=== PATIENT | female | born 1970 | race Caucasian/White ===

== ENCOUNTER → 2017-12-27 07:34 | Outpatient (CLI) | payer OTHER, SELFPAY ==
[2017-12-27 11:50] LABS: ALB/GLOB Ratio 1.2 RATIO (0.9-2.4); AST(SGOT) 27 U/L (15-37); Alanine Aminotransfer ALT/SGPT 31 U/L (13-56); Alkaline Phosphatase 88 U/L (45-117); Anion Gap 9 (5-15); BUN 15 mg/dL (7-18); BUN/Creat Ratio 21.9 RATIO (10-20); Calcium,Total 9.2 mg/dL (8.5-10.1); Chloride 109 mmol/L (98-107); Cholesterol 154 mg/dL (200); Creatinine, Serum 0.68 mg/dL (0.55-1.02); EST Glomerular Filtration Rate 97 mL/min (>60); Est Glom Filt Rate - Afr Amer 117 mL/min (>60); Globulin 3.4 g/dL (2.2-4.2); Glucose 82 mg/dL (74-106); High Density Lipoprotein 43 mg/dL; Potassium 3.9 mmol/L (3.5-5.1); Protein, Total 7.4 g/dL (6.4-8.2); Sodium Level 144 mmol/L (136-145); Triglycerides 81 mg/dL; Very Low Density Lipoprotein 16 mg/dL (5-40)
== END ==
PROVIDERS: Family Provider Family Medicine; PCP Family Medicine; Visit Provider Family Medicine
DX: E78.00 Pure hypercholesterolemia, unspecified (principal)
CPT/HCPCS: 36415; 80053; 80061

== ENCOUNTER → 2020-05-20 07:36 | Outpatient (CLI) | payer OTHER, SELFPAY ==
[2020-05-20 10:07] LABS: Absolute Lymphocyte Count 2.22 X10^3/uL (0.83-4.51); Absolute Neutrophil Count 2.9 X10^3/uL (2.0-7.7); Basophil# 0.05 X10^3/uL; Basophil% 0.8 % (0-1); Eosinophil# 0.99 X10^3/uL; Eosinophils% 15.2 % (0-5); Hematocrit 44.9 % (37-47); Hemoglobin 14.4 g/dL (12.0-15.0); Lymphocyte # 2.22 X10^3/ul (4.0); Lymphocyte % 34.2 % (19-41); Mean Corp Hgb Conc 32.1 g/dL (32-36); Mean Corpuscular Volume 90.3 fL (81-99); Mean Platelet Vol. 9.6 fl (6.2-12.0); Monocyte# 0.36 X10^3/uL; Monocyte% 5.5 % (0-10); NRBC Flagged by Analyzer 0 % (0-5); Neutrophil # 2.86 X10^3/uL (2.7-7.7); Platelet Count 320 K/mm3 (150-450); RBC Distribution Width CV 13.8 % (11.6-14.6); RBC Distribution Width SD 45.8 fl (35.1-43.9); Red Blood Count 4.97 M/mm3 (4.2-5.4); White Blood Count 6.5 K/mm3 (4.4-11.0)
[2020-05-20 11:00] LABS: ALB/GLOB Ratio 1.1 RATIO (0.9-2.4); AST(SGOT) 20 U/L (15-37); Alanine Aminotransfer ALT/SGPT 30 U/L (13-56); Alkaline Phosphatase 96 U/L (45-117); Anion Gap 7 (5-15); BUN 12 mg/dL (7-18); BUN/Creat Ratio 15.5 RATIO (10-20); Calcium,Total 8.8 mg/dL (8.5-10.1); Chloride 109 mmol/L (98-107); Cholesterol 270 mg/dL (200); Creatinine, Serum 0.77 mg/dL (0.55-1.02); EST Glomerular Filtration Rate 84 mL/min (>60); Est Glom Filt Rate - Afr Amer 101 mL/min (>60); Globulin 3.5 g/dL (2.2-4.2); Glucose 84 mg/dL (74-106); High Density Lipoprotein 46 mg/dL; Potassium 3.8 mmol/L (3.5-5.1); Protein, Total 7.5 g/dL (6.4-8.2); Sodium Level 141 mmol/L (136-145); Triglycerides 180 mg/dL; Very Low Density Lipoprotein 36 mg/dL (5-40)
== END ==
PROVIDERS: PCP Family Medicine; Referring Provider Family Medicine; Visit Provider Family Medicine
DX: Z00.00 Encounter for general adult medical examination without abnormal findings (principal); F32.9 Major depressive disorder, single episode, unspecified
CPT/HCPCS: 36415; 80053; 80061; 84443; 85025

== ENCOUNTER → 2020-06-07 | Outpatient (CLI) | payer OTHER, SELFPAY | END | disposition home or self-care (01) | LOC: LABSPEC 09:18 | PROVIDERS: PCP Family Medicine; Visit Provider Family Medicine | DX: Z20.828 Contact with and (suspected) exposure to other viral communicable diseases (principal) | CPT/HCPCS: 87426; 87635; U0005; U0003 ==

== ENCOUNTER → 2020-08-04 | Outpatient (CLI) | payer OTHER, SELFPAY ==
[2020-08-04 14:33] VITALS: BMI 30.4
[2020-08-15 13:03] LABS: HPV APTIMA, High Risk Negative (Negative)
== END | disposition home or self-care (01) ==
LOC: LABSPEC 16:34
PROVIDERS: PCP Family Medicine; Referring Provider Nurse Practitioner Women's Health; Visit Provider Nurse Practitioner Women's Health
DX: Z12.4 Encounter for screening for malignant neoplasm of cervix (principal)
CPT/HCPCS: 87624; 88175; G0145

== ENCOUNTER → 2020-08-22 11:53 | Outpatient (CLI) | payer OTHER, SELFPAY ==
[2020-08-04 14:33] VITALS: BMI 30.4
[2020-08-22 15:42] LABS: Free T3 2.2 pg/mL (2.18-3.98); T4 Free Direct 0.93 ng/dL (0.76-1.46); Thyroid Stim Hormone (TSH) 3.88 uIU/mL (0.358-3.74)
== END ==
PROVIDERS: PCP Family Medicine; Referring Provider Family Medicine; Visit Provider Family Medicine
DX: E03.9 Hypothyroidism, unspecified (principal)
CPT/HCPCS: 36415; 84439; 84443; 84481

== ENCOUNTER → 2021-03-30 15:59 | Outpatient (CLI) | payer OTHER, SELFPAY ==
--- NOTE | 2021-03-30 16:02 | BI_ITS ---
MAMMOGRAPHY - BILATERAL SCREENING REASON FOR EXAM: Female, 50 years old. Routine annual screening examination. PERTINENT HISTORY: Non-contributory. Remote right stereotactic breast biopsy. TECHNIQUE: Digital bilateral breast migue (3D mammographic acquisition) in the CC and MLO projections. 2-D mediolateral oblique (MLO) and craniocaudad (CC) views of both breasts were obtained. CAD: Full Field Digital Mammography with Computer Added Detection was performed. COMPARISON: Comparison is made with prior abdomen examination dated 10/18/2014. FINDINGS: Breast Composition: The breasts are heterogeneously dense, which may obscure small masses. There are no dominant masses or suspicious calcifications. A tissue clip marker is seen in the deep inferior central portion of the right breast. No other significant abnormalities are identified. There has been no significant change since the prior study. BI/SCRN MAMM (CAD)W/MIGUE BILAT IMPRESSION: Stable bilateral screening mammogram. Yearly follow-up mammogram recommended. (A) ASSESSMENT CATEGORY: BIRADS Category 2: Benign. A letter regarding these results will be sent to the patient by the facility within 30 days. Approximately 10% of breast cancers are not detected by mammography. A normal mammogram should not delay biopsy of a clinically suspicious abnormality. [id number] Electronically Signed: Jovany Guthrie MD at 9:38 EDT , Service support ,
== END ==
PROVIDERS: PCP Family Medicine; Referring Provider Nurse Practitioner Women's Health; Visit Provider Nurse Practitioner Women's Health
DX: Z12.31 Encounter for screening mammogram for malignant neoplasm of breast (principal)
CPT/HCPCS: 77063; 77067

== ENCOUNTER → 2022-06-25 | Outpatient (CLI) | payer OTHER, SELFPAY ==
[2022-06-25 09:50] LABS: Absolute Lymphocyte Count 2.28 X10^3/uL (0.83-4.51); Absolute Neutrophil Count 3.1 X10^3/uL (2.0-7.7); Basophil# 0.05 X10^3/uL; Basophil% 0.8 % (0-1); Eosinophil# 0.23 X10^3/uL; Eosinophils% 3.8 % (0-5); Hemoglobin 14.6 g/dL (12.0-15.0); Lymphocyte # 2.28 X10^3/ul (0.83-4.51); Lymphocyte % 37.6 % (19-41); Mean Corp Hgb Conc 32.4 g/dL (32-36); Mean Corpuscular Hgb 29.3 pg (27.0-32.0); Mean Corpuscular Volume 90.4 fL (81-99); Mean Platelet Vol. 9.3 fl (6.2-12.0); Monocyte% 6.6 % (0-10); NRBC Flagged by Analyzer 0 % (0-5); Platelet Count 293 K/mm3 (150-450); RBC Distribution Width CV 13.9 % (11.6-14.6); RBC Distribution Width SD 46.6 fl (35.1-43.9); Red Blood Count 4.98 M/mm3 (4.2-5.4); White Blood Count 6.1 K/mm3 (4.4-11.0)
[2022-06-25 10:19] LABS: AST(SGOT) 21 U/L (15-37); Alanine Aminotransfer ALT/SGPT 30 U/L (13-56); Albumin, Serum 3.8 g/dL (3.2-5.0); Alkaline Phosphatase 82 U/L (45-117); Anion Gap 8 (5-15); BUN 14 mg/dL (7-18); BUN/Creat Ratio 17.6 RATIO (10-20); Calcium,Total 9.1 mg/dL (8.5-10.1); Chloride 107 mmol/L (98-107); Cholesterol 272 mg/dL (200); EST Glomerular Filtration Rate 80 mL/min (>60); Est Glom Filt Rate - Afr Amer 97 mL/min (>60); Globulin 3.7 g/dL (2.2-4.2); Glucose 98 mg/dL (74-106); High Density Lipoprotein 51 mg/dL; Potassium 3.9 mmol/L (3.5-5.1); Protein, Total 7.5 g/dL (6.4-8.2); Sodium Level 141 mmol/L (136-145); Triglycerides 151 mg/dL; Very Low Density Lipoprotein 30 mg/dL (5-40)
== END | disposition home or self-care (01) ==
LOC: MTLAB 07:30
PROVIDERS: PCP Family Medicine; Referring Provider Family Medicine; Visit Provider Family Medicine
DX: E03.9 Hypothyroidism, unspecified (principal); E78.00 Pure hypercholesterolemia, unspecified
CPT/HCPCS: 36415; 80053; 80061; 84443; 85025

== ENCOUNTER → 2022-07-12 | Outpatient (CLI) | payer OTHER, SELFPAY ==
--- NOTE | 2022-07-12 10:11 | BI_ITS ---
MAMMOGRAPHY - BILATERAL SCREENING REASON FOR EXAM: Female, 51 years old. Routine annual screening examination. PERTINENT HISTORY: Non-contributory. Remote right stereotactic breast biopsy. TECHNIQUE: Digital bilateral breast migue (3D mammographic acquisition) in the CC and MLO projections. 2-D mediolateral oblique (MLO) and craniocaudad (CC) views of both breasts were obtained. CAD: Full Field Digital Mammography with Computer Added Detection was performed. COMPARISON: Comparison is made with prior study dated 03/22/2021. FINDINGS: Breast Composition: The breasts are heterogeneously dense, which may obscure small masses. There are no dominant masses or suspicious calcifications. A tissue clip marker is once again seen in deep inferior central portion of the right breast No other significant abnormalities are identified. There has been no significant change since the prior study. BI/SCRN MAMM (CAD)W/MIGUE BILAT IMPRESSION: Stable bilateral screening mammogram. Yearly follow-up mammogram recommended. (A) ASSESSMENT CATEGORY: BIRADS Category 2: Benign. A letter regarding these results will be sent to the patient by the facility within 30 days. Approximately 10% of breast cancers are not detected by mammography. A normal mammogram should not delay biopsy of a clinically suspicious abnormality. [id number] Electronically Signed: Jovany Guthrie MD at 11:13 EST ,
== END | disposition home or self-care (01) ==
LOC: OPBI 10:10
PROVIDERS: PCP Family Medicine; Visit Provider Family Medicine
DX: Z12.31 Encounter for screening mammogram for malignant neoplasm of breast (principal)
CPT/HCPCS: 77063; 77067

== ENCOUNTER 2022-07-26 08:18 | Day surgery (SDC) | payer OTHER, SELFPAY ==
[2022-07-26 08:43] VITALS: BP 94/55; PULSE 84; RESP 16; TEMP 36.7; O2SAT 99; BMI 28.9
[2022-07-26] MEDS: Lactated Ringers 1,000 ML 15 ML IV (09:01)
--- NOTE | 2022-07-26 09:30 | COLBX_PTH ---
PATIENT: SUDHEER KELLEY LOC: EN U#:[id number] AGE/SX: 51/F ROOM: RE07/26/[address]: Dr. Jose Zendejas MD : 1970 BED: DIS: 07/26/2022 SPEC #: [id number] RECD: 07/26/22 12:17 STATUS: MONIKA CATHERINE #: [id number] CESAR: 07/26/22 09:[address]: Jose Zendejas DEPT: SURGICAL PATHOLOGY RECD BY: Franchesca Isaac ENTERED: 07/26/22 12:39 SP TYPE: COLON BX OTHR DR: Dr. Fatoumata Franks MD Tissues: A - Sigmoid colon biopsy B - Sigmoid colon biopsy Procedures: Surgery Specimen Level IV HEADER OPERATION: Colonoscopy ? open access (MAC), polypectomy PRE-OP DIAGNOSIS: Screening TISSUE SUBMITTED: A ? Sigmoid colon polyp, B ? Distal sigmoid polyp MICROSCOPIC DIAGNOSIS A. Sigmoid colon polyp, polypectomy: Fragments of tubular adenoma. B. Distal sigmoid polyp, polypectomy: A cauterized fragment of colonic mucosa with changes suggestive of hyperplastic polyp. AUDIE:angela 07/27/2022 MICROSCOPIC DESCRIPTION Slides are reviewed. GROSS DESCRIPTION A - Received in fixative is one container labeled with the patient's name and designated sigmoid polyp. The specimen consists of multiple irregular fragments of light avina soft tissue that in aggregate measure 0.6 x 0.3 x 0.1 cm. The specimen is totally submitted in one cassette. B - Received in fixative is one container labeled with the patient's name and designated distal sigmoid polyp. The specimen consists of one irregular fragment of light avina soft tissue that measures 0.2 x 0.1 x 0.1 cm. The specimen is totally submitted in one cassette. / AUDIE:angela 07/26/2022 TC:1 CPT: 87546 x2
--- NOTE | 2022-07-26 09:47 | HP.PCM_ITS ---
[facility] - General General Date of Service: 07/26/22 Chief Complaint: Screening colonoscopy HPI Narrative SUDHEER KELLEY, is a 51 F who presents for screening colonoscopy. She confirms her preappointment questionnaire that she has not experienced any change in her bowel habits-and particularly denies any notice of blood. She also denies any family history of GI illness to include diverticulitis, inflammatory bowel disease, or colon cancer. Lastly she confirms that her prep was completed successfully and that her output is now clear. [facility] Medical History (Updated 07/23/22 @ 08:29 by Deyanira Mckee) Alcohol use Allergies Asthma COVID-19 Depression Depression Fibrocystic breast History of steroid therapy Hypercholesteremia Hypothyroid Non-smoker Post-menopausal Thyroid disease Wears glasses Home Medications fluticasone 100 mcg-salmeterol 50 mcg/dose blistr powdr for inhalation (Advair Diskus) 1 inh inhalation BID 08/04/20 [History Last Taken Unknown] fluticasone propionate 50 mcg/actuation nasal spray,suspension (Flonase Allergy Relief) 1 spray intranasal DAILY 08/04/20 [History Last Taken Unknown] levothyroxine 50 mcg capsule 88 mcg PO DAILY 08/04/20 [History Last Taken Unknown] loratadine 10 mg capsule 10 mg PO DAILY 08/04/20 [History Last Taken Unknown] montelukast 10 mg tablet 10 mg PO DAILY 08/04/20 [History Last Taken Unknown] sertraline 100 mg tablet 100 mg PO DAILY 08/04/20 [History Last Taken Unknown] albuterol 90 mcg/actuation aerosol inhaler mcg inhalation 07/26/22 [History Last Taken Unknown] Allergy/AdvReac Type Severity Reaction Status Date / Time aspirin Allergy Intermediate ASTHMA Verified 07/23/22 08:20 NSAIDS (Non-Steroidal Allergy Intermediate ASTHMA Verified 07/23/22 08:20 Anti-Inflamma Family History Father Heart disease Grandmother Breast cancer Mother kidney cancer Alcoholism Nicole Gehrigs disease Surgical History (Updated 07/23/22 @ 08:29 by Deyanira Mckee) History of breast biopsy History of carpal tunnel release History of eyelid surgery History of tonsillectomy Hx of nasal polypectomy Hx of wisdom tooth extraction Social History household members: spouse, children and other number of children: 2 current occupational status: employed current occupation: [employer] history of recent travel: No Smoking Status: Never smoker alcohol intake: current alcohol intake frequency: a few times a month substance use type: does not use what type of physical activity do you participate in: walking seatbelt use: always do you feel safe at home: Yes additional social history: - William Past Medical/Surgical History Planned Operation Planned Operative Procedure/s: CSCOPE OA Previous Hospitalizations/Surgeries HX Hospitalizations: No Any Problems With Anesthesia: No You/Your Family Experience Fever (Hyperthermia) With Anes: No Cholinesterase deficiency: No Cardiovascular Hx Hypertension: No Respiratory Hx Sleep Apnea: No Hx Respiratory Tract Infection/Cold (presently): No Do You Snore Loudly (louder than talking or can be heard): Yes Do You Often Feel Tired/ Fatigued/ Sleepy Dring Daytime?: No Has Anyone Observed You Stop Breathing During Sleep?: No Result (for STOP score): Negative Smoking Status: Never smoker Neurological Does patient have nerve stimulator: No Reproduction : No Miscellaneous Recent Exposure to Contagious Disease: No Allergies aspirin Allergy (Intermediate, Verified 07/23/22 08:20) ASTHMA NSAIDS (Non-Steroidal Anti-Inflamma Allergy (Intermediate, Verified 07/23/22 08:20) ASTHMA Discharge Is Pt Admitted From a Penitentiary, or a Senior Living: No After D/C, Where Do you Plan to Go: Return Home Vital Signs Vital Signs Vital Signs: 07/26/22 08:43 07/26/22 08:43 Temperature 98.1 F Temperature Source Temporal Pulse Rate 84 Respiratory Rate 16 Respiratory Pattern Normal Blood Pressure 94/55 L Blood Pressure Mean 68 Blood Pressure Source Monitor Blood Pressure Position Sitting Blood Pressure Location Right Arm Pulse Ox 99 Oxygen Delivery Method Room Air Weight Weight: 163 lb 2.273 oz Body Mass Index (BMI) 28.9 Physical Exam Const alert, oriented x3 and no apparent distress Resp normal respiratory effort GI GI Narrative: Soft, nontender nondistended Assessment & Plan Assessment/Plan (1) Encounter for screening for malignant neoplasm of colon: PLAN: Is a 51-year-old female who presents for open access program screening colonoscopy under MAC sedation. She confirms the content of her preprocedure questionnaire and appears to be at average risk for colon cancer. Further, she confirms that she has completed a prep and denies any further questions regarding today's procedure. Therefore we will proceed to the endoscopy suite for screening colonoscopy as previously arranged. Surgery Risks - Colonoscopy Risks Include but are not Limited To: Risks include but are not limited to: Bleeding, perforation requiring further surgery, inability to complete colonoscopy requiring barium enema.
[2022-07-26 10:38] VITALS: BP 118/27; BP 94/55; PULSE 66; RESP 16; TEMP 37.1; O2SAT 97
[2022-07-26 10:40] VITALS: BP 94/55; BP 98/58; PULSE 73; RESP 16; O2SAT 96
--- NOTE | 2022-07-26 10:40 | OP.COLON_ITS ---
Patient Name: Kimberly Mena Procedure Date: 07/26/2022 9:51 AM Date of : 1970 Age: 51 Procedure: Colonoscopy Indications: Screening for colorectal malignant neoplasm Providers: Jose Zendejas MD Referring MD: Jose Zendejas MD Medicines: See the Anesthesia note for documentation of the administered medications Patient Profile: Last Colonoscopy: none. The patient's first colonoscopy is today. Complications: No immediate complications. Estimated blood loss: None. Procedure: Pre-Anesthesia Assessment: - The heart rate, respiratory rate, oxygen saturations, blood pressure, adequacy of pulmonary ventilation, and response to care were monitored throughout the procedure. After I obtained informed consent, the scope was passed under direct vision. Throughout the procedure, the patient's blood pressure, pulse, and oxygen saturations were monitored continuously. The Colonoscope was introduced through the anus and advanced to the cecum, identified by the appendiceal orifice, ileocecal valve and palpation. The colonoscopy was somewhat difficult due to difficulty distending colon with CO2 {skip}. Air insufflation. The quality of the bowel preparation was adequate to identify polyps 6 mm and larger in size. Scope In: 9:56:27 AM Scope Withdrawal Time 0 hours 24 minutes 13 seconds Scope Out: 10:32:55 AM Total Procedure Duration Time 0 hours 36 minutes 28 seconds Findings: Skin tags were found on perianal exam. Two semi-pedunculated polyps were found in the sigmoid colon, proximal sigmoid colon and distal sigmoid colon. The polyps were 5 mm in size. These polyps were removed with a hot snare. Resection and retrieval were complete. Estimated blood loss: none. A few small-mouthed diverticula were found in the sigmoid colon. No biopsies or other specimens were collected for this exam. The exam was otherwise without abnormality on direct and retroflexion views. Impression: - Perianal skin tags found on perianal exam. - Two 5 mm polyps in the sigmoid colon, in the proximal sigmoid colon and in the distal sigmoid colon, removed with a hot snare. Resected and retrieved. - Diverticulosis in the sigmoid colon. No specimens collected. - The examination was otherwise normal on direct and retroflexion views. Recommendation: - Discharge patient to home (via wheelchair). - High fiber diet today. - Continue present medications. - Await pathology results. - Repeat colonoscopy date to be determined after pending pathology results are reviewed for surveillance based on pathology results. - Telephone my office for pathology results in 1 week. Procedure Code(s): --- Professional --- 48955, Colonoscopy, flexible; with removal of tumor(s), polyp(s), or other lesion(s) by snare technique Diagnosis Code(s): --- Professional --- Z12.11, Encounter for screening for malignant neoplasm of colon D12.5, Benign neoplasm of sigmoid colon K64.4, Residual hemorrhoidal skin tags K57.30, Diverticulosis of large intestine without perforation or abscess without bleeding CPT copyright 2017 [employer]. All rights reserved. The codes documented in this report are preliminary and upon computer programmer chief review may be revised to meet current compliance requirements. Jose Zendejas MD 07/26/2022 10:40:47 AM This report has been signed electronically. Number of Addenda: 0 Note Initiated On: 07/26/2022 9:51 AM
--- NOTE | 2022-07-26 10:41 | OP.CCLET_ITS ---
07/26/2022 Fatoumata Franks [place] [id number] [address] Re : Colonoscopy procedure for Kimberly Mena Dear Dr. Franks This procedure was performed on July. My impressions and recommendations are as follows: Impressions : - Perianal skin tags found on perianal exam. - Two 5 mm polyps in the sigmoid colon, in the proximal sigmoid colon and in the distal sigmoid colon, removed with a hot snare. Resected and retrieved. - Diverticulosis in the sigmoid colon. No specimens collected. - The examination was otherwise normal on direct and retroflexion views. Recommendations : - Discharge patient to home (via wheelchair). - High fiber diet today. - Continue present medications. - Await pathology results. - Repeat colonoscopy date to be determined after pending pathology results are reviewed for surveillance based on pathology results. - Telephone my office for pathology results in 1 week. My findings are described in the full procedure note, which is enclosed. If I can be of further assistance, please feel free to contact me at Doctor phone number(s): , Work: . Sincerely, Jose Zendejas MD 07/26/2022 10:40:47 AM This report has been signed electronically.
[2022-07-26 10:45] VITALS: BP 94/55; BP 99/60; PULSE 67; RESP 16; O2SAT 97
[2022-07-26 10:50] VITALS: BP 102/68; BP 94/55; PULSE 62; RESP 16; O2SAT 98
[2022-07-26 10:54] VITALS: BP 103/65; BP 94/55; PULSE 63; RESP 16; TEMP 35.9; O2SAT 95
== END 2022-07-26 11:30 | disposition home or self-care (01) ==
LOC: EN 08:21 → AC 08:22
PROVIDERS: PCP Family Medicine; Referring Provider Family Medicine; Visit Provider Surgery
PROC: 0DJD8ZZ Inspection of Lower Intestinal Tract, Via Natural or Artificial Opening Endoscopic (ICD-10-PCS; CPT 45378; principal; 2022-07-26 09:25)
DX: Z12.11 Encounter for screening for malignant neoplasm of colon (principal); K57.30 Diverticulosis of large intestine without perforation or abscess without bleeding; D12.5 Benign neoplasm of sigmoid colon; K64.4 Residual hemorrhoidal skin tags; F32.A Depression, unspecified; E03.9 Hypothyroidism, unspecified; Z79.899 Other long term (current) drug therapy; Z79.890 Hormone replacement therapy; Z86.16 Personal history of COVID-19; J45.909 Unspecified asthma, uncomplicated; E78.00 Pure hypercholesterolemia, unspecified
CPT/HCPCS: 45385; 88305; J7120; J2405

== ENCOUNTER → 2022-08-23 | Outpatient (CLI) | payer OTHER, SELFPAY | END | disposition home or self-care (01) | LOC: LAB.FUTURE 08:12 → BFHLAB 08:12 | PROVIDERS: PCP Family Medicine; Referring Provider Family Medicine; Visit Provider Family Medicine | DX: E03.9 Hypothyroidism, unspecified (principal) | CPT/HCPCS: 36415; 84443 ==

== ENCOUNTER → 2022-08-23 | Outpatient (CLI) | payer OTHER, SELFPAY ==
--- NOTE | 2022-08-23 07:03 | CT_ITS ---
STUDY: CT MAXILLOFACIAL SINUSES REASON FOR EXAM: Female, 51 years old. SINUSITIS. History of prior sinus surgery. RADIATION DOSAGE (If Supplied By Facility): CTDIvol = ( 33.06 ) mGy, DLP = ( 800.79 ) mGycm TECHNIQUE: The patient was scanned in a multi detector CT scanner. High resolution axial imaging was performed without the administration of intravenous contrast material. Sagittal and coronal images were reconstructed. Individualized dose optimization techniques were used for this CT. COMPARISON: None. FINDINGS: FRONTAL SINUSES: Mucosal thickening of the frontal sinuses bilaterally. ETHMOIDAL SINUSES: There is opacification of the ethmoid sinuses with thinning of the bony septations. MAXILLARY SINUSES: Mild degree of mucosal thickening of the maxillary sinuses bilaterally. There is evidence of a prior resection of the medial wall of the right maxillary sinus. SPHENOIDAL SINUSES: Mild degree of mucosal thickening of the sphenoid sinus anteriorly. There is compromise of the ostiomeatal complexes bilaterally due to mucosal hypertrophy. Normal bilateral middle turbinates. Normal bilateral inferior turbinates. Normal midline nasal septum. Opacification of the nasal airway suggestive of polyposis. The visualized osseous structures are normal. The visualized bilateral orbital contents are normal. CT/Sinus/Facial Bone IMPRESSION: Pansinusitis. Findings suggestive of nasal polyposis. Electronically Signed: Jovany Guthrie MD at 15:16 EDT ,
== END | disposition home or self-care (01) ==
LOC: CT 07:01
PROVIDERS: PCP Family Medicine; Referring Provider Otolaryngology Otolaryngology/Facial Plastic Surgery; Visit Provider Otolaryngology Otolaryngology/Facial Plastic Surgery
DX: J32.8 Other chronic sinusitis (principal)
CPT/HCPCS: 70486

== ENCOUNTER 2022-09-03 09:15 | Day surgery (SDC) | payer OTHER, SELFPAY ==
--- NOTE | 2022-08-30 12:57 | EKG12_ITS ---
Test Reason : PREOP Blood Pressure : / mmHG Vent. Rate : 073 BPM Atrial Rate : 073 BPM P-R Int : 140 ms QRS Dur : 088 ms QT Int : 374 ms P-R-T Axes : 071 079 049 degrees QTc Int : 412 ms Normal sinus rhythm with sinus arrhythmia Normal ECG Confirmed by MARCELLA BINGHAM, ANGEL ([id number]), offline editor LETICIA FULLER ([id number]) on 09/03/2022 10:44:11 AM Referred By: Edgar Diehl Confirmed By:LAUREL NARANJO MD
[2022-08-30 13:41] LABS: Hematocrit 43.6 % (37-47); Hemoglobin 14.2 g/dL (12.0-15.0); Mean Corp Hgb Conc 32.6 g/dL (32-36); Mean Corpuscular Hgb 29.4 pg (27.0-32.0); Mean Corpuscular Volume 90.3 fL (81-99); Mean Platelet Vol. 9.4 fl (6.2-12.0); Platelet Count 307 K/mm3 (150-450); RBC Distribution Width CV 13.7 % (11.6-14.6); RBC Distribution Width SD 45.7 fl (35.1-43.9); Red Blood Count 4.83 M/mm3 (4.2-5.4); White Blood Count 11.7 K/mm3 (4.4-11.0)
[2022-08-30 14:21] LABS: Anion Gap 5 (5-15); BUN 22 mg/dL (7-18); Calcium,Total 9.2 mg/dL (8.5-10.1); Chloride 105 mmol/L (98-107); Creatinine, Serum 0.71 mg/dL (0.55-1.02); EST Glomerular Filtration Rate 91 mL/min (>60); Est Glom Filt Rate - Afr Amer 111 mL/min (>60); Glucose 89 mg/dL (74-106); Potassium 3.6 mmol/L (3.5-5.1); Sodium Level 138 mmol/L (136-145)
--- NOTE | 2022-09-03 | ETH_PTH ---
PATIENT: SUDHEER KELLEY LOC: [facility] U#:[id number] AGE/SX: 51/F ROOM: RE09/03/[address]: Dr. Edgar Diehl MD : 1970 BED: DIS: 09/03/2022 SPEC #: [id number] RECD: 09/03/22 13:08 STATUS: MONIKA CATHERINE #: [id number] CESAR: 09/03/22 00:[address]: Edgar Diehl DEPT: SURGICAL PATHOLOGY RECD BY: Lb Tolliver ENTERED: 09/03/22 13:08 SP TYPE: ETH TISS OTHR DR: Dr. Fatoumata Franks MD Tissues: A - Ethmoid sinus, NOS B - Ethmoid sinus, NOS Procedures: Surgery Specimen Level IV HEADER OPERATION: Total ethmoidectomy, maxillary antrostomy with Navigation PRE-OP DIAGNOSIS: Chronic sinusitis, polyp of nasal cavity TISSUE SUBMITTED: A ? Right sinus contents, B ? Left sinus contents MICROSCOPIC DIAGNOSIS A. Right sinus contents, curettings: Polypoid fragments of respiratory mucosa with chronic inflammation consistent with chronic sinusitis. B. Left sinus contents, curettings: Polypoid fragments of respiratory mucosa with chronic inflammation consistent with chronic sinusitis. AM:angela 09/04/2022 MICROSCOPIC DESCRIPTION Slides are reviewed. GROSS DESCRIPTION A - Received in fixative is one container labeled with the patient's name and designated right sinus contents. The specimen consists of multiple fragments of hemorrhagic mucoid tissue that in aggregate measure 6.0 x 4.0 x 1.0 cm. Paint Brush Maker tissue is submitted in two cassettes. B - Received in fixative is one container labeled with the patient's name and designated left sinus contents. The specimen consists of multiple fragments of hemorrhagic mucoid tissue that in aggregate measure 4.0 x 3.0 x 1.0 cm. Paint Brush Maker tissue is submitted in two cassettes. / SJ:angela 09/03/2022 TC:3 CPT:
[2022-09-03] MEDS: Lactated Ringers 1,000 ML 15 ML IV ×2 (10:18→12:42)
[2022-09-03] MEDS: Oxymetazoline 0.05% 1 SPRAY SPRAY.BTL 3 SPRAY NASAL (10:19)
[2022-09-03 10:21] VITALS: BP 120/53; PULSE 62; RESP 18; TEMP 36.4; O2SAT 97; BMI 30.9
--- NOTE | 2022-09-03 11:03 | PCM.DC.SUM ---
Providers Primary Care Physician: Dr. Fatoumata Franks MD Reason For Visit: BILATERAL ETHMOIDECTOMY, MAXILLARY ANTROSTOM Medications at Discharge Home Medications fluticasone 100 mcg-salmeterol 50 mcg/dose blistr powdr for inhalation (Advair Diskus) 1 inh inhalation BID 08/04/20 fluticasone propionate 50 mcg/actuation nasal spray,suspension (Flonase Allergy Relief) 1 spray intranasal DAILY 08/04/20 levothyroxine 50 mcg capsule 88 mcg PO DAILY 08/04/20 loratadine 10 mg capsule 10 mg PO DAILY 08/04/20 montelukast 10 mg tablet 10 mg PO DAILY 08/04/20 sertraline 100 mg tablet 100 mg PO DAILY 08/04/20 albuterol 90 mcg/actuation aerosol inhaler 90 mcg inhalation PRN PRN Shortness Of Breath Or Wheezing 07/26/22 Weight / BMI Weight Weight: 76.657 kg Body Mass Index (BMI) 30.9 ABG / Lab / Microbiology Data Result Diagrams: 08/30/22 12:39 08/30/22 12:39 D/C Instructions Discharge Diet: No restrictions Additional Activity Instructions: No nose blowing Additional Dressing/Incision Instructions: Start irrigation tomorrow morning. Irrigate 4-5x\day Please Follow Up With: Edgar Diehl MD When: next week Meaningful Use Info Meaningful Use Diagnoses (Choose all that apply): None applicable Discharge Plan Admission Attending Provider: Edgar Diehl Primary Care Provider: Fatoumata Franks Discharge Orders/Prescriptions Prescriptions: No Action levothyroxine 50 mcg capsule 88 mcg PO DAILY sertraline 100 mg tablet 100 mg PO DAILY montelukast 10 mg tablet 10 mg PO DAILY fluticasone propion-salmeterol [Advair Diskus] 100-50 mcg/dose blister with device 1 inh INHALATION BID loratadine 10 mg capsule 10 mg PO DAILY fluticasone propionate [Flonase Allergy Relief] 50 mcg/actuation spray,suspension 1 spray INTRANASAL DAILY Rx Instructions: administer into each nostril albuterol 90 mcg/actuation Aerosol 90 mcg INHALATION PRN PRN (Reason: Shortness Of Breath Or Wheezing) Other Ambulatory Orders: 12 Lead EKG (Routine) Timeframe: [id number] Location: None Selected Ordered By: Dr. Edgar Diehl Referrals / Follow Up: Fatoumata Franks MD [Primary Care Provider] - Disposition Disposition (needs filled in before D/C Order can be placed): Home, Self Care
[2022-09-03] MEDS: Oxymetazoline 0.05% 1 SPRAY SPRAY.BTL 15 SPRAY (11:29)
[2022-09-03] MEDS: Mupirocin Ointment 22gm Tube 1 APPLIC (11:30)
[2022-09-03] MEDS: Lidocaine 1% /Epi 1:100 (50ml) 50 ML VIAL (11:51)
--- NOTE | 2022-09-03 11:57 | PCM.OPRPT ---
Report of Operation Date of Procedure: 09/03/22 Pre-Operative Diagnosis: chronic sinusitis Post-Operative Diagnosis: same Surgery/Procedure Performed:: Bilateral maxillary antrostomy bilateral total ethmoidectomy use of navigation Surgeon: Edgar Diehl Type of Anesthesia: General Anesthesiologist: Tonny Armenta Estimated Blood Loss (mL): minimal Description of Procedure: The patient was taken to the operating room on 09/03/2022. The patient was placed in the supine position on the operating table. The patient was given sufficient general endotracheal anesthesia. The head of bed was elevated 30 degrees. The navigation system was placed and verified per protocol and found to be accurate. 0 and 30 degrees rigid nasal endoscopes were used throughout the entire case. The middle turbinate uncinate process and polyps were injected with 1% lidocaine with epinephrine bilaterally. The right middle turbinate was medialized with a [place] elevator. Polyp was removed from the middle meatus using a sinus shaver. Polyp was then removed from the maxillary antrum thus creating an antrostomy. Next, polyp was removed from the ethmoid cavity using a sinus shaver. Ethmoid cells were verified for relation to the skull base and orbit prior to being entered with the navigation system. The front face of the sphenoid was opened after removing polyp from the posterior ethmoid . I then placed Afrin pledgets into the sinonasal cavity. Next attention was turned to the left side. The middle turbinate was medialized with a [place] elevator. A large polyp was removed from the middle meatus using a sinus shaver. In doing so, the maxillary antrostomy was created. Total ethmoidectomy was performed with a small curette. Anterior and posterior ethmoidectomy were then carried out using a sinus shaver curette and Bl[place]ley Cruzito forceps. Ethmoid cells were verified for relation to the skull base and orbit prior to being entered with the navigation system. There was a polyp occluding the natural sphenoid ostia. This was removed with a sinus shaver. Hemostasis was then achieved using Afrin pledgets. The pledgets were then removed bilaterally and Kate powder was applied bilaterally for absolute hemostasis. The procedure was then terminated. The patient was then awoken and brought to the recovery room in stable condition blood loss less than 10 cc replacement none. Sponge, needle, instrument count were correct at the end of the procedure.
[2022-09-03 12:10] VITALS: BP 120/53; BP 141/84; PULSE 102; RESP 16; TEMP 36.3; O2SAT 92
[2022-09-03 12:15] VITALS: BP 120/53; BP 149/82; PULSE 101; RESP 16; O2SAT 92
[2022-09-03 12:30] VITALS: BP 120/53; BP 141/79; PULSE 82; RESP 16; O2SAT 96
[2022-09-03 12:40] VITALS: BP 120/53; BP 144/79; PULSE 83; RESP 16; TEMP 36.4; O2SAT 93
[2022-09-03 13:18] VITALS: BP 118/52; BP 120/53; PULSE 72; RESP 18; TEMP 36.8; O2SAT 99
== END 2022-09-03 13:20 | disposition home or self-care (01) ==
LOC: SDC 09:19 → AC 09:53
PROVIDERS: PCP Family Medicine; Referring Provider Otolaryngology; Visit Provider Otolaryngology
PROC: (CPT 31256; principal; 2022-09-03 10:25)
DX: J32.8 Other chronic sinusitis (principal); J33.0 Polyp of nasal cavity; Z86.16 Personal history of COVID-19; J45.909 Unspecified asthma, uncomplicated; F32.A Depression, unspecified; E03.9 Hypothyroidism, unspecified
CPT/HCPCS: 31256; 30110; 31255; 36415; 80048; 85027; 88305; 93005; J7120; J2405

== ENCOUNTER → 2024-04-21 | Outpatient (CLI) | payer OTHER, SELFPAY ==
[2024-04-21 15:06] LABS: Hematocrit 41.4 % (37-47); Hemoglobin 13.5 g/dL (12.0-15.0); Mean Corp Hgb Conc 32.6 g/dL (32-36); Mean Corpuscular Hgb 29.3 pg (27.0-32.0); Platelet Count 286 K/mm3 (150-450); RBC Distribution Width CV 13.7 % (11.6-14.6); White Blood Count 5.8 K/mm3 (4.4-11.0)
[2024-04-21 15:07] LABS: Absolute Lymphocyte Count 1.91 X10^3/uL (0.83-4.51); Basophil# 0.03 X10^3/uL; Basophil% 0.5 % (0-1); Eosinophil# 0.38 X10^3/uL; Eosinophils% 6.6 % (0-5); Lymphocyte # 1.91 X10^3/ul (0.83-4.51); Lymphocyte % 33.1 % (19-41); Mean Platelet Vol. 9.8 fl (6.2-12.0); Monocyte% 6.9 % (0-10); NRBC Flagged by Analyzer 0 % (0-5); Neutrophil # 3.04 X10^3/uL (2.7-7.7); Neutrophil % 52.7 % (47-70)
[2024-04-21 15:47] LABS: ALB/GLOB Ratio 1.2 RATIO (0.9-2.4); AST(SGOT) 21 U/L (15-37); Alanine Aminotransfer ALT/SGPT 25 U/L (13-56); Albumin, Serum 4.1 g/dL (3.2-5.0); Alkaline Phosphatase 93 U/L (45-117); Anion Gap 4 (5-15); BUN 16 mg/dL (7-18); BUN/Creat Ratio 20.1 RATIO (10-20); Calcium,Total 9.2 mg/dL (8.5-10.1); Chloride 107 mmol/L (98-107); Cholesterol 300 mg/dL (200); EST Glomerular Filtration Rate 80 mL/min (>60); Est Glom Filt Rate - Afr Amer 96 mL/min (>60); Globulin 3.5 g/dL (2.2-4.2); Glucose 96 mg/dL (74-106); High Density Lipoprotein 44 mg/dL; Protein, Total 7.6 g/dL (6.4-8.2); Sodium Level 138 mmol/L (136-145); T4 Free Direct 1.06 ng/dL (0.76-1.46); Triglycerides 160 mg/dL; Very Low Density Lipoprotein 32 mg/dL (5-40)
== END | disposition home or self-care (01) ==
PROVIDERS: PCP Family Medicine; Referring Provider Family Medicine; Visit Provider Family Medicine
DX: Z00.00 Encounter for general adult medical examination without abnormal findings (principal); E03.9 Hypothyroidism, unspecified; E78.00 Pure hypercholesterolemia, unspecified; J45.40 Moderate persistent asthma, uncomplicated; F32.A Depression, unspecified
CPT/HCPCS: 36415; 80053; 80061; 84439; 84443; 85025

== ENCOUNTER → 2024-07-02 | Outpatient (CLI) | payer OTHER, SELFPAY ==
--- NOTE | 2024-07-02 07:45 | BI_ITS ---
PROCEDURE: SCRN MAMM (CAD)W/MIGUE BILAT REASON FOR EXAM: F, Age 53 y/o, routine mammogram. No family history. Prior right stereotactic breast biopsy. TECHNIQUE: Bilateral screening digital breast tomosynthesis with 2D and 3D images. Computer aided detection. COMPARISON: Prior exam(s) dating back to comparison is made with prior study dated July 12, 2022.. FINDINGS: The breasts are heterogeneously dense which may obscure small masses. Stable examination. No suspicious masses, areas of developing architectural distortion, or suspicious calcifications. BI/SCRN MAMM (CAD)W/MIGUE BILAT IMPRESSION: BI-RADS 1: NEGATIVE. RECOMMEND ANNUAL MAMMOGRAPHIC SCREENING. Follow-up code: Routine Follow-up The patient will be notified of the results by letter. Reading Location: [place] [address]
== END | disposition home or self-care (01) ==
PROVIDERS: PCP Family Medicine; Referring Provider Family Medicine; Visit Provider Family Medicine
DX: Z12.31 Encounter for screening mammogram for malignant neoplasm of breast (principal)
CPT/HCPCS: 77063; 77067

== ENCOUNTER → 2024-07-30 | Outpatient (CLI) | payer OTHER, SELFPAY ==
[2024-07-30 11:27] LABS: AST(SGOT) 26 U/L (<=31); Alanine Aminotransfer ALT/SGPT 31 U/L (<=34); Albumin, Serum 4.4 g/dL (3.5-5.0); Alkaline Phosphatase 96 U/L (35-104); Bilirubin, Direct 0.11 mg/dL (0.00-0.30); Cholesterol 219 mg/dL (<=200); Globulin 2.7 g/dL (2.2-4.2); High Density Lipoprotein 37 mg/dL; Low Density Lipoprotein Calc. 155 mg/dL; Protein, Total 7.1 g/dL (5.9-8.4); Total Bilirubin 0.29 mg/dL (0.00-1.30); Triglycerides 134 mg/dL; Very Low Density Lipoprotein 27 mg/dL (5-40); cholesterol:hdl ratio screen 5.92
== END | disposition home or self-care (01) ==
LOC: LAB 07:48
PROVIDERS: PCP Family Medicine; Referring Provider Family Medicine; Visit Provider Family Medicine
DX: E78.00 Pure hypercholesterolemia, unspecified (principal)
CPT/HCPCS: 36415; 80061; 80076